=== PATIENT | male | born 1965 | race Hispanic/Latino ===

== ENCOUNTER 2017-05-24 14:53 | Outpatient (CLI) | payer OTHER ==
--- NOTE | 2017-05-25 07:42 | XRay Report ---
Bilateral knee: History: Knee pain. Findings: Marked narrowing of medial and patellofemoral compartment knee joint bilaterally. Sclerotic articular surfaces with peripheral osteophytes suggestive severe degenerative changes being more pronounced in the patellofemoral compartment particularly the left knee. No fracture dislocation or soft tissue calcification. Impression: Tricompartmental knee joint arthritis being more pronounced at the patellofemoral compartment and medial compartment
== END 2017-05-24 14:54 | disposition home or self-care (01) ==
LOC: SPVIMAG 14:53
PROVIDERS: ATTEND Orthopaedic Surgery
DX: M17.0 Bilateral primary osteoarthritis of knee (principal)